=== PATIENT | male | born 1970 | race Two or more races ===

== ENCOUNTER 2022-01-06 05:54 | Day surgery (SDC) | payer OTHER ==
[~2022-01-06] VITALS: Ht 180.3 cm; Wt 103.4 kg
[~2022-01-06 05:54] MED LIST: IRBESARTAN-HCT1 EACH PO
== END 2022-01-06 12:05 | disposition home or self-care (01) ==
LOC: CIR.AMB 05:54
PROVIDERS: ATTEND Orthopaedic Surgery
DX: M75.121 Complete rotator cuff tear or rupture of right shoulder, not specified as traumatic (principal); M24.111 Other articular cartilage disorders, right shoulder; M75.21 Bicipital tendinitis, right shoulder; I10 Essential (primary) hypertension; Z87.891 Personal history of nicotine dependence; E78.5 Hyperlipidemia, unspecified